=== PATIENT | male | born 1980 | race Caucasian/White ===

== ENCOUNTER 2024-08-07 16:39 | Emergency (ER) | payer SELFPAY ==
[~2024-08-07] VITALS: Ht 170.2 cm; Wt 100.0 kg
[2024-08-07] MEDS ORDERED: Iohexol 300 - 100 ML VIAL IV ONE (17:07)
[2024-08-07 17:23] LABS: BASO # 0.01 K/mm3 (0.02-0.10); EOS # 0.07 K/mm3 (0.04-0.40); EOS % 0.5 % (0.0-4.0); HEMATOCRIT 46.1 % (42.0-52.0); LYMPH# 1.37 K/mm3 (1.50-4.00); MEAN CELL VOLUME 95 fl (78-100); MEAN CORPUSCULAR HEMOGLOBIN 33 pg (27-31); MEAN CORPUSCULAR HGB CONC 35 g/dL (33-37); MEAN PLATELET VOLUME 9.2 fl (7.4-10.4); MONO # 0.46 K/mm3 (0.20-0.80); NEU # 10.99 K/mm3 (1.40-6.50); PLATELET COUNT 232 K/mm3 (130-400); RED BLOOD COUNT 4.87 M/mm3 (4.20-5.60); RED CELL DISTRIBUTION WIDTH 12.5 % (11.5-14.5); WHITE BLOOD COUNT 12.9 K/mm3 (4.8-10.8)
[2024-08-07 17:27] LABS: ALBUMIN 4.4 g/dL (3.5-5.0)
[2024-08-07 17:29] LABS: CALCIUM 9.5 mg/dL (8.3-10.5)
[2024-08-07 17:30] LABS: TOTAL PROTEIN 6.8 g/dL (6.4-8.3)
[2024-08-07] MEDS ORDERED: fentaNYL 100 MCG/2 ML VIAL IV ONE (17:30)
[2024-08-07 17:32] LABS: TOTAL BILIRUBIN 0.4 mg/dL (0.2-1.2)
[2024-08-07] MEDS ORDERED: NORCO 325 MG-51 TA1 PO (17:52)
[2024-08-07] MEDS ORDERED: Home HYDROcodone/Acetaminophen 5/325 MG #4 TABS/PACK PO ONE (18:00)
[2024-08-07 18:06] VITALS: BP 114/77
== END 2024-08-07 18:06 | disposition home or self-care (01) ==
LOC: ED 16:39
PROVIDERS: Physician Assistant
DX: R07.89 Other chest pain (principal); V80.018A Animal-rider injured by fall from or being thrown from other animal in noncollision accident, initial encounter; Y93.I9 Activity, other involving external motion
CPT/HCPCS: J3010; Q9967